=== PATIENT | female | born 1940 | race Caucasian/White ===

== ENCOUNTER 2016-06-03 15:40 | Emergency (ER) | payer SELFPAY ==
[~2016-06-03] VITALS: Ht 157.5 cm; Wt 44.5 kg
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
[2016-06-03 17:19] VITALS: BP 149/83
== END 2016-06-03 17:20 | disposition home or self-care (01) ==
LOC: ER 15:43
DX: R07.9 Chest pain, unspecified (principal); V43.52XA Car driver injured in collision with other type car in traffic accident, initial encounter; Y93.89 Activity, other specified; Y92.488 Other paved roadways as the place of occurrence of the external cause; Y99.8 Other external cause status
CPT/HCPCS: 71010; 99283; A4606; Z7610

== ENCOUNTER 2020-07-04 13:05 | Outpatient (CLI) | payer MEDICARE, BC | END 2020-07-04 23:59 | disposition home or self-care (01) | LOC: MSC 13:05 | PROVIDERS: ATTEND Internal Medicine | DX: D50.0 Iron deficiency anemia secondary to blood loss (chronic) (principal); R53.83 Other fatigue ==